=== PATIENT | male | born 1955 | race Caucasian/White ===

== ENCOUNTER 2019-03-05 13:31 | Emergency (ER) | payer BC ==
[~2019-03-05] VITALS: Ht 177.8 cm; Wt 83.9 kg
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
--- NOTE | 2019-03-05 13:50 | NUR ---
bhargavi campbell at bedside for mse.
[2019-03-05] MEDS ORDERED: NEOMY/BACITRA/POLYMYXIN B OINT UD PACKET TP ONE ×2 (14:33→14:45)
--- NOTE | 2019-03-05 14:35 | NUR ---
DR Juarez at bedside made patient aware of test results will be DC home.
--- NOTE | 2019-03-05 14:37 | NUR ---
Patient discharged to home in stable conditon. Written and verbal after care instructions given. Patient verbalizes understanding of instructions.
[2019-03-05 14:38] VITALS: BP 129/79
== END 2019-03-05 14:38 | disposition home or self-care (01) ==
LOC: ER 13:31
DX: S51.812A Laceration without foreign body of left forearm, initial encounter (principal); Z88.2 Allergy status to sulfonamides; V03.99XA Pedestrian with other conveyance injured in collision with car, pick-up truck or van, unspecified whether traffic or nontraffic accident, initial encounter; Y93.89 Activity, other specified; Y92.89 Other specified places as the place of occurrence of the external cause; Y99.8 Other external cause status
CPT/HCPCS: 73080; 73090; A4663